=== PATIENT | male | born 1975 | race Caucasian/White ===

== ENCOUNTER 2022-09-28 15:09 | Outpatient (CLI) | payer OTHER, SELFPAY ==
--- NOTE | ~2022-09-28 | XR_ITS ---
EXAMINATION: XR chest 2V 09/28/2022 15:34 INDICATION: Chest pain and shortness of breath PROCEDURE: 2 view chest COMPARISON: No prior studies for comparison. FINDINGS: The lungs are clear. The cardiomediastinal silhouette is within normal limits. There are no pleural effusions. There is no pneumothorax suspected. There are a few scattered calcified granu akhil. IMPRESSION: 1: NO ACUTE CARDIOPULMONARY DISEASE. Reviewed, dictated and finalized at location B. ACCOUNTS REPRESENTATIVE
== END 2022-09-28 15:10 | disposition home or self-care (01) ==
PROVIDERS: PCP Family Medicine; Visit Provider Family Medicine
DX: R03.0 Elevated blood-pressure reading, without diagnosis of hypertension (principal); R00.2 Palpitations; E03.9 Hypothyroidism, unspecified
CPT/HCPCS: 71046

== ENCOUNTER 2022-09-29 12:15 | Outpatient (CLI) | payer OTHER, SELFPAY | END 2022-09-29 12:16 | disposition home or self-care (01) | LOC: CHSCARD 12:16 | PROVIDERS: PCP Family Medicine; Visit Provider Family Medicine | DX: R06.00 Dyspnea, unspecified (principal); R07.9 Chest pain, unspecified | CPT/HCPCS: 94060; 94726; 94729 ==

== ENCOUNTER 2022-10-02 09:59 | Outpatient (CLI) | payer OTHER, SELFPAY ==
[2022-10-02 10:30] LABS: Basophils Percent Auto 1.3 % (0.0-1.0); Eosinophils Absolute Auto 0.44 K/mm3 (0.02-0.50); Eosinophils Percent Auto 5.7 % (1.0-6.0); Hematocrit 40.8 % (40.0-54.0); Hemoglobin 13.9 g/dL (14.0-18.0); Immature Granulocyte Absolute 0.02 K/mm3 (0.00-0.00); Immature Granulocyte Percent A 0.3 % (0.0-0.0); Lymphocytes Absolute Auto 2.86 K/mm3 (1.10-4.50); Mean Corpuscular HGB Conc 34.1 g/dL (32.0-36.0); Mean Platelet Volume 9.7 fl (8.7-11.0); Monocytes Absolute Auto 0.74 K/mm3 (0.10-0.90); Monocytes Percent Auto 9.6 % (2.0-11.0); Neutrophils Absolute Auto 3.6 K/mm3 (1.7-7.2); Neutrophils Percent Auto 46.1 % (50.0-70.0); Platelet Count Result 290 K/mm3 (150-420); Red Cell Distribution Width 12.7 % (11.6-14.4); White Blood Count 7.7 K/mm3 (4.8-10.8)
[2022-10-02 11:21] LABS: Alanine Aminotransferase 27 U/L (16-63); Albumin Level 3.7 g/dL (3.4-5.0); Alkaline Phosphatase 107 U/L (46-116); Anion Gap 7 mmol/L (8-16); Aspartate Amino Transferase 29 U/L (15-37); Blood Urea Nitrogen 11 mg/dL (7-18); Calcium 9.2 mg/dL (8.5-10.1); Carbon Dioxide 29 mmol/L (21-32); Chloride 102 mmol/L (98-108); Cholesterol 139 mg/dL (0-200); Estimated Glomerular Filt Rate > 60; Free T4 Free Thyroxine 0.74 ng/dL (0.76-1.46); Glucose 92 mg/dL (70-99); HDL Direct 33 mg/dL (40-60); LDL Cholesterol Calculated 83 mg/dL (<130); Osmolality Calculated 285 mOsm/kg (285-295); Potassium 4.2 mmol/L (3.5-5.1); Sodium 138 mmol/L (136-145); Thyroid Stimulating Hormone 25.02 uIU/mL (0.36-3.74); Total Protein 7.3 g/dL (6.4-8.2); Triglycerides 117 mg/dL (0-150)
== END 2022-10-02 10:00 | disposition home or self-care (01) ==
LOC: CHSLAB 10:02
PROVIDERS: PCP Family Medicine; Visit Provider Family Medicine
DX: R03.0 Elevated blood-pressure reading, without diagnosis of hypertension (principal); R00.2 Palpitations; E03.9 Hypothyroidism, unspecified; Z13.220 Encounter for screening for lipoid disorders
CPT/HCPCS: 36415; 80053; 80061; 84439; 84443; 85025

== ENCOUNTER 2023-12-29 15:41 | Emergency (ER) | payer OTHER, SELFPAY ==
--- NOTE | ~2023-12-29 | XR_ITS ---
EXAM: XR ankle LT min 3V, XR foot LT min 3V DATE: 12/29/2023 16:01 HISTORY: dropped a heavy object on the left ankle/MEDIAL PAIN . COMPARISON: None available. FINDINGS: Uncomplicated fixation screws in the navicular. Normal mineralization. No fracture or disl ocation. Bone island in the distal tibia. Joint spaces are maintained. No erosion or periosteal pisano e. Soft tissues within normal limits. IMPRESSION: No acute osseous finding in the left ankle or foot. Reviewed, dictated and finalized at location K. IMPRESSION: No acute osseous finding in the left ankle or foot.
[2023-12-29 15:41] VITALS: BP 176/90; PULSE 92; RESP 20; TEMP 36.1; O2SAT 100
--- NOTE | 2023-12-29 15:44 | ED.LOWEXIN ---
HPI - Extremity Injury (Lower) General Chief Complaint: Extremity Injury, Lower Stated Complaint: L foot/ankle injury Time Seen by Provider: 12/29/23 15:44 Source: patient Mode of arrival: ambulatory Limitations: no limitations History of Present Illness HPI Narrative: 48-year-old male dropped a heavy object on his left lower leg, ankle/foot yesterday. presents with abrasions or / bruising of his left lower leg foot and ankle. Unable to bear weight. No other injuries noted. up-to-date on tetanus MD complaint: ankle injury and foot injury Onset (ago): day(s) ( One day ago) Injury: Left: ankle and foot Type of Injury: blunt Place: work Severity: severe Relieving factors: immobilization Exacerbating factors: movement Context: direct blow Other symptoms: none Related Data Allergies Allergy/AdvReac Type Severity Reaction Status Date / Time topiramate [From Topamax] Allergy Unknown Verified 12/29/23 15:59 Review of Systems Review of Systems: All systems reviewed & are unremarkable except as noted in HPI and below Constitutional: Constitutional: Reports as per HPI and Reports no additional constitutional complaints Eyes: Eyes: Reports as per HPI and Reports no additional eye complaints ENT: Reports system reviewed and no additional complaints, except as documented and Reports as per HPI Cardiovascular: Cardiovascular: Reports as per HPI and Reports no additional cardiovascular complaints Respiratory: Respiratory: Reports as per HPI and Reports no additional respiratory complaints Gastrointestinal: Gastrointestinal: Reports as per HPI and Reports no additional gastrointestinal complaints Genitourinary: Genitourinary: Reports no additional male genitourinary complaints and Reports as per HPI Musculoskeletal: Musculoskeletal: Reports no additional musculoskeletal complaints and Reports as per HPI Integumentary/Breasts: Skin/Breast: Reports system reviewed and no additional complaints, except as docu Comments: left leg/ foot / ankle bruising/abrasion Neurologic: Reports system reviewed and no additional complaints, except as documented and Reports as per HPI Psychiatric: Psychiatric: Reports no additional psychiatric complaints and Reports as per HPI Endocrine: Endocrine: Reports no additional endocrine complaints and Reports as per HPI Hematologic/Lymphatic: Hematologic/Lymphatic: Reports no additional hematologic/lymphatic complaints and Reports as per HPI Allergic/Immunologic: Allergic/Immunologic: Reports no additional allergic/immunologic complaints and Reports as per HPI Exam Narrative: blood pressure 176/90. Const: General: ill appearing Orientation/consciousness: patient oriented x3 Limitations: no limitations HENMT: Head: normal to inspection Ears: external ears normal Face/Nose/Sinus: Normal external nose present Face and sinus: normal facial exam Mouth: Yes Normal oral and palatal mucosa present Throat: posterior oropharynx normal Eyes: Conjunctivae: conjunctivae normal Pupils: Equal, round and reactive pupils present EOM: EOMs intact bilaterally Direct Ophthalmoscopy: no photophobia Neck: Neck: normal visual inspection, no lymphadenopathy and no meningeal signs Chest: Chest palpation & inspection: normal inspection of the chest Resp: Effort & Inspection: normal respiratory effort Auscultation: rhonchi Cardio: Rate: regular rate Rhythm: regular rhythm GI: GI Palp: Yes Soft to palpation Auscultation: normal bowel sounds : General: Yes no CVA tenderness Back/Spine/Pelvis: Back: no CVA tenderness Skin: Other: Left lower leg, foot and ankle abrasion/bruising Neuro: General: patient oriented x3, moves all extremities, no meningeal signs, no focal motor deficits and CN's II-XI intact bilaterally Cranial nerves: Yes Nystagmus not present Speech: normal speech Extrem: Other: left ankle-- tender. Decreased range of motion left foot-- scar on the top of
[2023-12-29] MEDS: Please add drug allergy info to patient profile. 1 EACH XX (15:58)
[2023-12-29] MEDS: HYDROmorphone HCL INJ (*CRX) 2 MG/ML VIAL 0.5 MG IM (16:03)
[2023-12-29] MEDS: ONDANSETRON HCL ODT 4 MG TABLET PO (16:03)
== END 2023-12-29 16:26 | disposition home or self-care (01) ==
PROVIDERS: Emergency Provider Internal Medicine Critical Care Medicine; PCP Family Medicine
DX: S93.602A Unspecified sprain of left foot, initial encounter (principal); S93.402A Sprain of unspecified ligament of left ankle, initial encounter; W20.8XXA Other cause of strike by thrown, projected or falling object, initial encounter
CPT/HCPCS: 73610; 73630; 96372; 99283; A9270; J1170; L4350

== ENCOUNTER 2024-03-07 09:23 | Outpatient (CLI) | payer OTHER, SELFPAY ==
--- NOTE | ~2024-03-07 | XR_ITS ---
XR abdomen obstructive series Ordering provider: Nathan Hernandez MD History: . rlq pain,CONSTIPATION . Comparison: None. FINDINGS: BOWEL: Nonobstructive bowel gas pattern. ORGANOMEGALY: None. SIGNIFICANT PATHOLOGIC CALCIFICATIONS: Calcification in the right upper quadrant which may be a galls tone. Granuloma of the liver is also possible. Splenic calcifications are also noted. OTHER: No free air is seen under the diaphragm. Narrowing of the disc L4-L5. IMPRESSION: NO ACUTE ABDOMINAL FINDINGS. Calcification in the right upper quadrant may be a gallstone or granuloma in the liver.. Reviewed, dictated and finalized at location A. IMPRESSION: NO ACUTE ABDOMINAL FINDINGS. Calcification in the right upper quadrant may be a gallstone or granuloma in th e liver..
[2024-03-07 09:52] LABS: Basophils Percent Auto 1.6 % (0.0-1.0); Eosinophils Absolute Auto 0.32 K/mm3 (0.02-0.50); Eosinophils Percent Auto 5.1 % (1.0-6.0); Hematocrit 44.4 % (40.0-54.0); Hemoglobin 15.5 g/dL (14.0-18.0); Immature Granulocyte Absolute 0.01 K/mm3 (0.00-0.00); Immature Granulocyte Percent A 0.2 % (0.0-0.0); Lymphocytes Absolute Auto 2.32 K/mm3 (1.10-4.50); Lymphocytes Percent Auto 36.7 % (18.0-42.0); Mean Corpuscular HGB Conc 34.9 g/dL (32-36); Mean Corpuscular Hemoglobin 29.9 pg (27.0-31.0); Mean Corpuscular Volume 85.7 fL (78.0-102.0); Monocytes Absolute Auto 0.59 K/mm3 (0.10-0.90); Monocytes Percent Auto 9.3 % (2.0-11.0); Neutrophils Absolute Auto 2.99 K/mm3 (1.70-7.20); Neutrophils Percent Auto 47.1 % (50.0-70.0); Platelet Count Result 296 K/mm3 (150-420); Red Blood Count 5.18 M/mm3 (4.70-6.10); Red Cell Distribution Width 12.6 % (11.6-14.4); White Blood Count 6.3 K/mm3 (4.8-10.8)
[2024-03-07 09:54] LABS: Add Urine Microscopic? YES; Appearance Urine Clear (Clear); Bilirubin Urine Negative (Negative); Blood Urine 2+ (Negative); Color Urine Yellow (Yellow); Glucose Urine UA Negative (Negative); Ketones Urine Negative (Negative); Leukocyte Esterase Ur Negative (Negative); Nitrate Urine Negative (Negative); Protein Urine 2+ (Negative); Specific Grav Ur >= 1.030 (1.010-1.020)
[2024-03-07 10:01] LABS: Bacteria Urine Rare /hpf; Other Sediment Urine Spermatazoa /hpf; WBC Urine None seen /hpf (0-3)
[2024-03-07 18:59] LABS: Creatinine Urine 291.69 mg/dL (40-278); Microalbumin Urine Random 49.8 mg/L
[2024-03-07 19:20] LABS: Alanine Aminotransferase 22 U/L (16-63); Albumin Level 4.3 g/dL (3.4-5.0); Alkaline Phosphatase 129 U/L (46-116); Aspartate Amino Transferase 46 U/L (15-37); Bilirubin,Total 1.1 mg/dL (0.00-1.00); Blood Urea Nitrogen 11 mg/dL (7-18); Calcium 9.4 mg/dL (8.5-10.1); Chloride 99 mmol/L (98-108); Estimated Glomerular Filt Rate > 60; Free T4 Free Thyroxine 0.54 ng/dL (0.76-1.46); Glucose 74 mg/dL (70-99); Osmolality Calculated 286 mOsm/kg (285-295); Potassium 3.7 mmol/L (3.5-5.1); Sodium 139 mmol/L (136-145); Total Protein 8.7 g/dL (6.4-8.2)
[2024-03-07 20:16] LABS: Anion Gap 20 mmol/L (4-12); Carbon Dioxide 20 mmol/L (21-32)
[2024-03-07 20:47] LABS: Thyroid Stimulating Hormone 86.46 uIU/mL (0.36-3.74)
== END 2024-03-07 09:24 | disposition home or self-care (01) ==
LOC: CHSLAB 09:25
PROVIDERS: PCP Family Medicine; Visit Provider Family Medicine
DX: D64.9 Anemia, unspecified (principal); R10.31 Right lower quadrant pain; R30.0 Dysuria; E03.9 Hypothyroidism, unspecified
CPT/HCPCS: 36415; 74019; 80053; 81001; 82043; 84439; 84443; 85025; 87086

== ENCOUNTER 2024-03-13 08:19 | Outpatient (CLI) | payer OTHER, SELFPAY ==
--- NOTE | ~2024-03-13 | US_ITS ---
EXAMINATION: US right upper quadrant DATE: 03/13/2024 08:56 INDICATION: Abnormal liver function tests. TECHNIQUE: Multiple grayscale and Doppler ultrasound images of the abdomen were obtained. COMPARISON: None FINDINGS: The visualized portion of the tail of the pancreas is normal. The liver is normal without f ocal lesion. No liver surface nodularity. There is normal flow in main portal vein. The gallbladder i s normal in size. No gallstones or gallbladder wall thickening. There is no sonographic Ceron's sign . The common duct is normal and measures 3 mm. IMPRESSION: 1. Normal right upper quadrant ultrasound. Reviewed, dictated and finalized at location A.
[2024-03-13 08:50] LABS: Add Urine Microscopic? YES; Appearance Urine Clear (Clear); Bilirubin Urine Negative (Negative); Blood Urine Negative (Negative); Color Urine Yellow (Yellow); Glucose Urine UA Negative (Negative); Ketones Urine Negative (Negative); Leukocyte Esterase Ur Negative (Negative); Nitrate Urine Negative (Negative); Protein Urine Trace (Negative); Specific Grav Ur 1.025 (1.010-1.020)
[2024-03-13 08:55] LABS: Bacteria Urine Trace /hpf; Other Sediment Urine Spermatazoa /hpf; RBC Urine None seen /hpf (0-2); WBC Urine None seen /hpf (0-3)
[2024-03-13 08:56] LABS: Mucus Urine Moderate /lpf
== END 2024-03-13 08:20 | disposition home or self-care (01) ==
LOC: CHSIMG 08:21
PROVIDERS: PCP Family Medicine; Visit Provider Family Medicine
DX: R74.01 Elevation of levels of liver transaminase levels (principal); R31.9 Hematuria, unspecified
CPT/HCPCS: 76705; 81001

== ENCOUNTER 2024-05-10 15:44 | Outpatient (CLI) | payer OTHER, SELFPAY ==
--- NOTE | ~2024-05-10 | XR_ITS ---
Left Hand Technique: PA, oblique, and lateral views were obtained. Clinical History: Pain Findings: No acute fracture or dislocation is seen. There is a 14 mm lytic lesion at the distal ulna, with narrow zone of transition. No periosteal reaction. Joint spaces are preserved. Soft tissues are unremarkable. Impression: 14 mm ovoid lytic lesion of the distal ulna. Diagnostic considerations could include focal fibrous dy splasia, giant cell tumor, however lytic bone lesions. Pre and postcontrast MR recommended to further assess. Reviewed, dictated and finalized at location M. Impression: 14 mm ovoid lytic lesion of the distal ulna. Diagnostic considerations could in clude focal fibrous dysplasia, giant cell tumor, however lytic bone lesions. Pr e and postcontrast MR recommended to further assess.
--- NOTE | ~2024-05-10 | XR_ITS ---
Left wrist Technique: PA, oblique, lateral, and ulnar deviation views were obtained. Clinical History: Ulnar-sided pain Findings: No acute fracture or dislocation is seen. There is a 16 mm lytic lesion at the distal ulna, extending to the articular surface. There is a transition. No periosteal reaction. Joint spaces are preserved. Soft tissues are unremarkable. Impression: 16 mm ovoid lytic lesion of the distal ulna, as detailed above. Giant cell tumor is a consideration. Pre and postcontrast MR recommended to further assess. Reviewed, dictated and finalized at location M. Impression: 16 mm ovoid lytic lesion of the distal ulna, as detailed above. Giant cell tumo r is a consideration. Pre and postcontrast MR recommended to further assess.
[2024-05-10 16:03] LABS: Basophils Absolute Auto 0.07 K/mm3 (0.00-0.10); Basophils Percent Auto 1.1 % (0.0-1.0); Eosinophils Absolute Auto 0.42 K/mm3 (0.02-0.50); Eosinophils Percent Auto 6.6 % (1.0-6.0); Hematocrit 40.2 % (40.0-54.0); Lymphocytes Absolute Auto 2.15 K/mm3 (1.10-4.50); Mean Corpuscular HGB Conc 34.8 g/dL (32-36); Mean Corpuscular Hemoglobin 29.1 pg (27.0-31.0); Mean Corpuscular Volume 83.6 fL (78.0-102.0); Mean Platelet Volume 9.7 fl (8.7-11.0); Monocytes Absolute Auto 0.41 K/mm3 (0.10-0.90); Monocytes Percent Auto 6.5 % (2.0-11.0); Neutrophils Absolute Auto 3.28 K/mm3 (1.70-7.20); Neutrophils Percent Auto 51.8 % (50.0-70.0); Platelet Count Result 293 K/mm3 (150-420); Red Blood Count 4.81 M/mm3 (4.70-6.10); Red Cell Distribution Width 12.5 % (11.6-14.4); White Blood Count 6.3 K/mm3 (4.8-10.8)
[2024-05-10 16:46] LABS: Anion Gap 8 mmol/L (4-12); Blood Urea Nitrogen 8 mg/dL (7-18); Calcium 8.9 mg/dL (8.5-10.1); Carbon Dioxide 29 mmol/L (21-32); Chloride 101 mmol/L (98-108); Estimated Glomerular Filt Rate > 60; Glucose 114 mg/dL (70-99); Osmolality Calculated 285 mOsm/kg (285-295); Potassium 3.6 mmol/L (3.5-5.1); Sodium 138 mmol/L (136-145); Thyroid Stimulating Hormone 47.23 uIU/mL (0.36-3.74)
== END 2024-05-10 15:45 | disposition home or self-care (01) ==
LOC: CHSLAB 15:46
PROVIDERS: PCP Family Medicine; Visit Provider Family Medicine
DX: M25.532 Pain in left wrist (principal); E03.9 Hypothyroidism, unspecified; M89.9 Disorder of bone, unspecified
CPT/HCPCS: 36415; 73110; 73130; 80048; 84443; 85025

== ENCOUNTER 2024-05-27 09:01 | Outpatient (CLI) | payer OTHER, SELFPAY ==
--- NOTE | ~2024-05-27 | MR_ITS ---
EXAMINATION: MR wrist LT wo/w con DATE: 05/27/2024 10:17 INDICATION: Lytic lesion of distal ulna. Left wrist pain. TECHNIQUE: Magnetic resonance imaging (MRI) of the wrist was performed without and with 17 mL MultiHa nce intravenous contrast. COMPARISON: Left wrist radiographs 05/10/2024 FINDINGS: Intrinsic ligaments: Scapholunate ligament and lunotriquetral ligament are intact. Triangular fibrocartilage complex (TFCC): There is a large full-thickness tear of the triangular fibrocartilage. Extensor wrist: The extensor tendons are normal. Flexor wrist: The flexor tendons are normal. Median nerve is normal. Guyon's canal: Ulnar nerve is normal. Bones/other: Distal ulna abuts proximal lunate with edema-like marrow signal intensity and subchondral cysts in amairani th bones including a 16 mm subchondral cyst in distal ulna. Bone marrow edema involves the distal 4.4 cm of ulna. There is breach of the dorsal cortex of distal ulna at the junction of the head and neck with a 14 mm ganglion cyst in the soft tissues that is contiguous with the subchondral cyst. There is mild edema-like signal intensity in proximal triquetrum. 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 There is synovitis of distal radioulnar joint. IMPRESSION: 1. 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 Reviewed, dictated and finalized at location A. IMPRESSION: 1. 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
== END 2024-05-27 09:02 | disposition home or self-care (01) ==
LOC: CHSIMG 09:02
PROVIDERS: PCP Family Medicine; Visit Provider Family Medicine
DX: D16.9 Benign neoplasm of bone and articular cartilage, unspecified (principal)
CPT/HCPCS: 73223; A9577

== ENCOUNTER 2024-06-19 10:15 | Outpatient (CLI) | payer OTHER, SELFPAY ==
[2024-06-19 12:25] LABS: Thyroid Stimulating Hormone 24.69 uIU/mL (0.36-3.74)
== END 2024-06-19 10:16 | disposition home or self-care (01) ==
PROVIDERS: PCP Family Medicine; Visit Provider Family Medicine
DX: E03.9 Hypothyroidism, unspecified (principal)
CPT/HCPCS: 36415; 84443

== ENCOUNTER 2024-08-17 13:21 | Outpatient (CLI) | payer OTHER, SELFPAY ==
[2024-08-17 14:35] LABS: Thyroid Stimulating Hormone 6.35 uIU/mL (0.36-3.74)
== END 2024-08-17 13:22 | disposition home or self-care (01) ==
LOC: CHSLAB 13:23
PROVIDERS: PCP Family Medicine; Visit Provider Family Medicine
DX: E03.9 Hypothyroidism, unspecified (principal)
CPT/HCPCS: 36415; 84443

== ENCOUNTER 2024-11-14 09:46 | Outpatient (CLI) | payer OTHER, SELFPAY ==
--- OUTSIDE RECORDS SUMMARY | 2024-11-14 10:33 | XMS_ITS | Referral Summary ---
Author Organization [facility] Address [address] [place] [id number] Care Team Providers Care General Technician Name Role Phone Unknown, Notinfile Primary Care Provider Unavail able Encounters Date Type Department Care Team Description 10/10/2024 5:46 PM CDT - 10/10/2024 11:59 PM CDT Hospital Encounter [facility] ([facility]) [address] [place] [id number] Discharge Disposition: Discharge to home or self care 10/10/2024 5:39 PM CDT - 10/10/2024 11:59 PM CDT Hospital Encounter [facility] ([facility]) [address] [place] [id number] Discharge Disposition: Discharge to home or self care 10/10/2024 2:21 PM CDT - 10/10/2024 11:59 PM CDT Hospital Encounter [facility] ([facility]) [address] [place] [id number] Avery Aviles MD Left elbow pain Discharge Disposition: Discharge to home or self care 10/10/2024 1:40 PM CDT Office Visit [facility] [address] [place] [address] 6[address] [place] [address] [place] [address] Avery Aviles MD Left elbow pain (Primary Dx) from Last 3 Months Allergies No known active allergies Medications levothyroxine (SYNTHROID) 175 mcg tablet 09/21/2024 Active Active Problems No known active problems Social History Tobacco Use Types Packs/Day Years Used Date Smoking Tobacco: Every Day Cigarettes Smokeless Tobacco: Never Tobacco Cessation:Ready to Q uit: Not Asked; Counseling Given: Not Answered Sex and Gender Information Value Date Recorded Sex Assigned at Not on file 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 Gender Identity Not on file Sexual Orientation Not on file Last Filed Vital Signs Vital Sign Reading Time Taken Comments Blood Pressure - - Pulse - - Temperature - - Respiratory Rate - - Oxygen Saturation - - Inhaled Oxygen Concentration - - Weight 81.6 kg (180 lb) 10/10/2024 1:48 PM CDT Height 175.3 cm (5' 9 ) 10/10/2024 1:48 PM CDT Body Mass Index 26.58 10/10/2024 1:48 PM CDT Plan of Treatment Not on file Procedures Procedure Name Priority Date/Time Associated Diagnosis Comments XR TRANSFER OF OUTSIDE FILMS Routine 10/10/2024 5:46 PM CDT MSK MR OUTSIDE REFERENCE Routine 10/10/2024 5:39 PM CDT XR ELBOW LEFT 2 OR MORE VIEWS Schedule Routine, Read Routine (OP Routine) 10/10/2024 2:34 PM CDT Left elbow pain HI ARTHROCENTESIS ASPIR&/INJ INTERM JT/BURS W/O US Routine 10/10/2024 1:40 PM CDT Left elbow pain from Last 3 Months Results * XR Outside Reference (10/10/2024 5:46 PM CDT) Impressions [facility] - 10/10/2024 5:46 PM CDT These images are for Reference purposes only and have not been reviewed by [facility]. There will be no report generated by a [facility] Radiologist. Narrative [facility] - 10/10/2024 5:46 PM CDT EXAMINATION: Images For Reference Purposes Only us Avery Aviles MD IMG XR PROCEDURES Final Resul t [facility] * MSK MR Outside Reference (10/10/2024 5:39 PM CDT) Impressions [facility] - 10/10/2024 5:39 PM CDT These images are for Reference purposes only and have not been reviewed by [facility]. There will be no report generated by a [facility] Radiologist. Narrative [facility] - 10/10/2024 5:39 PM CDT EXAMINATION: Images For Reference Purposes Only us Avery Aviles MD IMG MRI PROCEDURES Final Resu lt [facility] * X-ray elbow left 2 views (10/10/2024 2:34 PM CDT) Anatomical Region Laterality Modality Upper Extremities, Elbow Left Compute d Radiography 10/10/2024 2:55 PM CDT Impressions 10/10/2024 2:55 PM CDT 1. Normal radiographic appearance of the left elbow. Electronically signed by: Jayesh Hoover D.O. Narrative 10/10/2024 2:55 PM CDT EXAMINATION: XR ELBOW LEFT 2 VIEWS HISTORY: JOINT PAIN, ELBOW FINDINGS: No comparison prior imaging is available. No acute fracture. No dislocation. Joint spaces are maintained. No significant elbow joint effusion. Procedure Note Jayseh Hoover DO - 10/10/2024 EXAMINATION: XR ELBOW LEFT 2 VIEWS HISTORY: JOINT PAIN, ELBOW FINDINGS: No comparison prior imaging is available. No acute fracture. No dislocation. Joint spaces are maintained. No significant elbow joint effusion. IMPRESSION: 1. Normal radiographic appearance of the left elbow. Electronically signed by: Jayesh Hoover D.O. us Avery Aviles MD IMG XR PROCEDURES Final Resul t * HI ARTHROCENTESIS ASPIR&/INJ INTERM JT/BURS W/O US (10/10/2024 1:40 PM CDT) Narrative Avery Aviles MD - 10/10/2024 1:40 PM CDT Avery Aviles MD 10/10/2024 2:44 PM Medium Joint Injection: L radiocarpal Performed by: Avery Aviles MD Authorized by: Avery Aviles MD Medium Joint Injection/Aspiration: Consent Given by: Patient Timeout: prior to procedure the correct patient, procedure, and site was verified Verbal consent obtained?: Yes Supporting Documentation: Indications: Pain Procedure Details: Location: Wrist Site: L radiocarpal Approach: Dorsal Medications: 1 mL lidocaine 10 mg/mL (1 %); 40 mg methylPREDNISolone acetate 40 mg/mL Patient tolerance: Patient tolerated the procedure well with no immediate complications Avery Aviles MD IN CLINIC/BEDSIDE ORDERABLES Final Result from Last 3 Months Insurance [facility] Care Teams General Technician Relationship Specialty Start Date End Date Unknown, Notinfile PCP - General 07/18/24
--- OUTSIDE RECORDS SUMMARY | 2024-11-14 10:33 | XMS_ITS | Clinical Summary ---
Author Organization [facility] Address [facility] [place] [address] Care Team Providers Care Education Sales Consultant Name Role Phone Tres Abdi MD Primary Care Provider [phone] Allergies No known active allergies Medications azithromycin (ZITHROMAX) 500 MG tablet Take 1 tablet (500 mg total) by mouth daily. 3 tablet 07/02/2019 Active cloNIDine 0.2 MG tablet Take 0.2 mg by mouth 2 (two) times daily. Active gabapentin 100 MG capsule Take 100 mg by mouth 3 (three) times daily. Active meloxicam 15 MG tablet Take 7.5 mg by mouth daily. Active risperiDONE (RISPERDAL) 1 MG tablet Take 1 mg by mouth 2 (two) times daily. Active levothyroxine 75 MCG tablet Take 75 mcg by mouth every morning. Active OXcarbazepine (TRILEPTAL) 150 MG tablet Take 150 mg by mouth 2 (two) times daily. 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 Gender Identity Not on file Sexual Orientation Not on file Last Filed Vital Signs Vital Sign Reading Time Taken Comments Blood Pressure 108/62 09/22/2019 2:47 PM CATHEAD WORKER Pulse 93 09/22/2019 2:47 PM CATHEAD WORKER Temperature 36.7 C (98 F) 07/02/2019 9:02 AM CATHEAD WORKER Respiratory Rate 20 07/02/2019 9:02 AM CATHEAD WORKER Oxygen Saturation 98% 09/22/2019 2:47 PM CATHEAD WORKER Inhaled Oxygen Concentration - - Weight 74.3 kg (163 lb 12.8 oz) 09/22/2019 2:47 PM CATHEAD WORKER Height 172.7 cm (5' 8 ) 09/22/2019 2:47 PM CATHEAD WORKER Body Mass Index 24.91 09/22/2019 2:47 PM CATHEAD WORKER Plan of Treatment Health Maintenance Due Date Last Done Comments Colorectal Cancer Screening Colonoscopy (10 Years) 1977 Annual Physical 1980 Pneumococcal Vaccine: Pediatrics (0 to 5 Years) and At-Risk Patients (6 to 49 Years) (1 of 2 - PCV) 1983 Hepatitis C 1995 DTaP, Tdap and Td Vaccines (1 - Tdap) 1996 12/16/1981, 05/02/1981, 09/06/1980, Additional history exists Hepatitis B Vaccines (1 of 3 - 19+ 3-dose series) 1996 COVID-19 Vaccine ( - 2023- season) 2024 Meningococcal B Vaccine Aged Out No l onger eligible based on patient's age to complete this topic Meningococcal Vaccine Aged Out No spring jude eligible based on patient's age to complete this topic RSV Immunizations Under 20 Months Aged Out No longer eligible based on patient's age to complete this topic Additional Health Concerns Infection Onset Date Last Indicated MRSA 08/17/2018 08/17/[address] [place] [address] [place] [address] Advance Directives Documents on File Type Date Recorded 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
--- OUTSIDE RECORDS SUMMARY | 2024-11-14 10:33 | XMS_ITS | Encounter Summary ---
Author Organization [facility] Address [facility] [place] [address] Care Team Providers Care [employer] [address] [address] [employer] Name Role Phone Jose Carlos Mcdonough MD Primary Care Provider [phone] Marissa Jung Primary Care Provider [phone] Tres Abdi MD Primary Care Provider [phone] Encounter Details Date Type Department Care Team (Late st Contact Info) Description 01/07/2019 Abstract [facility] CONVERSION [address] [place] [address] , Generic Conversion, Social History Tobacco Use Types Packs/Day Years Used Date Smoking Tobacco: Never Assessed Sex and Gender Information Value Date Recorded Sex Assigned at Not on file 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 Gender Identity Not on file Sexual Orientation Not on file documented as of this encounter Plan of Treatment Not on file documented as of this encounter Visit Diagnoses Not on filedocumented in this encounter Additional Health Concerns Infection Onset Date Last Indicated Resolved Time MRSA 08/17/2018 08/17/2018 documented as of this encounter Care Teams [employer] [address] [employer] Relationship Specialty Start Date End Date Jose Carlos Mcdonough MD PCP - General FAMILY PRACTICE 06/26/19 07/19/19 Marissa Jung FNP-BC [address] [place] [address] PCP - General NURSE PRACTITIONER 07/20/19 03/12/20 Tres Abdi MD [address] [place] [phone] PCP - General FAMILY PRACTICE 03/13/20 documented as of this encounter
--- OUTSIDE RECORDS SUMMARY | 2024-11-14 10:33 | XMS_ITS | Clinical Summary ---
Author Organization [facility] Address [address] [place] [phone] Care Team Providers Care Industrial Real Estate Agent Name Role Phone Unknown, Notinfile Primary Care Provider Unavail able Allergies No known active allergies Medications levothyroxine (SYNTHROID) 175 mcg tablet 09/21/2024 Active Active Problems No known active problems Encounters Date Type Department Care Team Description 10/10/2024 5:46 PM CDT - 10/10/2024 11:59 PM CDT Hospital Encounter [facility] ([facility]) [address] [place] [id number] Discharge Disposition: Discharge to home or self care 10/10/2024 5:39 PM CDT - 10/10/2024 11:59 PM CDT Hospital Encounter [facility] ([facility]) [address] [place] [phone] Discharge Disposition: Discharge to home or self care 10/10/2024 2:21 PM CDT - 10/10/2024 11:59 PM CDT Hospital Encounter [facility] ([facility]) [address] [place] [phone] Avery Aviles MD Left elbow pain Discharge Disposition: Discharge to home or self care 10/10/2024 1:40 PM CDT Office Visit [facility] Orthopaedic Surgery [address] [place] [address] Advanced Medicine 6th [place] [address] [place] [address] Avery Aviles MD Left elbow pain (Primary Dx) from Last 3 Months Surgical History Surgery Date Site/Laterality Comments FOOT SURGERY Left Fracture fixation HAND SURGERY Right Closed Reduction and pinning [facility] History Medical History Date Comments Thyroid disease Family History Medical History Relation Name Comments Agent orange Father Epilepsy Mother Heart disease Mother Relation Name Status Comments Father Mother Social History Tobacco Use Types Packs/Day Years Used Date Smoking Tobacco: Every Day Cigarettes Smokeless Tobacco: Never Tobacco Cessation:Ready to Q uit: Not Asked; Counseling Given: Not Answered Sex and Gender Information Value Date Recorded Sex Assigned at Not on file 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 Gender Identity Not on file Sexual Orientation Not on file Obstetrics History Last Filed Vital Signs Vital Sign Reading Time Taken Comments Blood Pressure - - Pulse - - Temperature - - Respiratory Rate - - Oxygen Saturation - - Inhaled Oxygen Concentration - - Weight 81.6 kg (180 lb) 10/10/2024 1:48 PM CDT Height 175.3 cm (5' 9 ) 10/10/2024 1:48 PM CDT Body Mass Index 26.58 10/10/2024 1:48 PM CDT Plan of Treatment Health Maintenance Due Date Last Done Comments Colon Cancer Screening-Colonoscopy 1977 Depression Screening 1977 Hepatitis C Screening 1977 Hepatitis B Screening 1995 Regular Well Visit/Exam 18-64 1995 Pneumococcal vaccine <65 (1 of 2 - PCV) 1996 Covid-19 Vaccine (3 - 2023-2 5 season) 2024 04/10/2021, 02/26/2021 Influenza Vaccine (#1) 2024 DTaP/Tdap/Td Vaccine (6 - Td or Tdap) 08/25/2025 08/25/2015, 06/22/1991, 12/16/1981, Additional history exists Procedures Procedure Name Priority Date/Time Associated Diagnosis Comments XR TRANSFER OF OUTSIDE FILMS Routine 10/10/2024 5:46 PM CDT MSK MR OUTSIDE REFERENCE Routine 10/10/2024 5:39 PM CDT XR ELBOW LEFT 2 OR MORE VIEWS Schedule Routine, Read Routine (OP Routine) 10/10/2024 2:34 PM CDT Left elbow pain [place] ARTHROCENTESIS ASPIR&/INJ INTERM JT/BURS W/O US Routine 10/10/2024 1:40 PM CDT Left elbow pain from Last 3 Months Results * XR Outside Reference (10/10/2024 5:46 PM CDT) [facility] - 10/10/2024 5:46 PM CDT These images are for Reference purposes only and have not been reviewed by [facility] Radiology. There will be no report generated by a [facility] Radiologist. Narrative [facility] - 10/10/2024 5:46 PM CDT EXAMINATION: Images For Reference Purposes Only Avery Aviles MD IMG XR PROCEDURES Final Resul t Performing Organization Address [facility] de Phone Number [email or web address] * MSK MR Outside Reference (10/10/2024 5:39 PM CDT) Impressions [facility] - 10/10/2024 5:39 PM CDT These images are for Reference purposes only and have not been reviewed by [facility] Radiology. There will be no report generated by a [facility] Radiologist. Narrative [facility] - 10/10/2024 5:39 PM CDT EXAMINATION: Images For Reference Purposes Only Avery Aviles MD IM MRI PROCEDURES Final Resu lt Performing Organization Address [facility] de Phone Number [email or web address] * X-ray elbow left 2 views [...] No significant elbow joint effusion. Procedure Note Jayesh Hoover DO - 10/10/2024 EXAMINATION: XR ELBOW LEFT 2 VIEWS HISTORY: JOINT PAIN, ELBOW FINDINGS: No comparison prior imaging is available. No acute fracture. No dislocation. Joint spaces are maintained. No significant elbow joint effusion. IMPRESSION: 1. Normal radiographic appearance of the left elbow. Electronically signed by: Jayesh Hoover D.O. us Avery Aviles MD IMG XR PROCEDURES Final Resul t * [place] ARTHROCENTESIS ASPIR&/INJ INTERM JT/BURS W/O US (10/10/2024 [...] the procedure well with no immediate complications us Avery Aviles MD IN CLINIC/BEDSIDE ORDERABLES Final Result from Last 3 Months Insurance [facility] Care Teams Industrial Real Estate Agent Relationship Specialty Start Date End Date Unknown, Notinfile PCP - General 07/18/24
[2024-11-14 10:54] LABS: Thyroid Stimulating Hormone 9.75 uIU/mL (0.36-3.74)
== END 2024-11-14 09:47 | disposition home or self-care (01) ==
PROVIDERS: PCP Family Medicine; Visit Provider Family Medicine
DX: E03.9 Hypothyroidism, unspecified (principal)
CPT/HCPCS: 36415; 84443

== ENCOUNTER 2025-01-29 13:36 | Outpatient (CLI) | payer OTHER, SELFPAY ==
--- OUTSIDE RECORDS SUMMARY | 2025-01-29 13:57 | XMS_ITS | Clinical Summary ---
Author Organization [facility] Address [address] [place] [phone] Care Team Providers Care Curam Developer Name Role Phone Unknown, Notinfile Primary Care Provider Unavail able Allergies No known active allergies Medications levothyroxine (SYNTHROID) 175 mcg tablet 09/21/2024 Active Active Problems No known active problems Encounters Date Type Department Care Team Description 01/29/2025 [facility] Initial Eligibility [facility] Warm Hand Off Program [address] [place], [place] [phone] Gisele Walton from Last 3 Months Surgical History Surgery Date Site/Laterality Comments FOOT SURGERY Left Fracture fixation HAND SURGERY Right Closed Reduction and pinning [facility] Medical History Medical History Date Comments Thyroid [...] on file 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 Gender Identity Not on file Sexual Orientation Not on file Obstetrics History Last Filed Vital Signs Vital Sign Reading Time Taken Comments Blood Pressure - - Pulse - - Temperature - - Respiratory Rate - - Oxygen Saturation - - Inhaled Oxygen Concentration - - Weight 81.6 kg (180 lb) 10/10/2024 1:48 PM CDT Height 175.3 cm (5' 9) 10/10/2024 1:48 PM CDT Body Mass Index 26.58 10/10/2024 1:48 PM CDT Plan of Treatment Health Maintenance Due Date Last Done Comments Colon Cancer Screening-Colonoscopy 1977 Depression Screening 1977 Hepatitis C Screening 1977 Hepatitis B Screening 1995 Regular Well Visit/Exam 18-64 1995 Pneumococcal vaccine <65 (1 of 2 - PCV) 1996 Covid-19 Vaccine (3 - 2023-2 5 season) 2024 04/10/2021, 02/26/2021 Influenza Vaccine (Season Ended) 2025 DTaP/Tdap/Td Vaccine (6 - Td or Tdap) 08/25/2025 08/25/2015, 06/22/1991, 12/16/1981, Additional history exists Insurance [facility] Care Teams Curam Developer Relationship Specialty Start Date End Date Unknown, Notinfile PCP - General 07/18/24
--- OUTSIDE RECORDS SUMMARY | 2025-01-29 13:57 | XMS_ITS | Clinical Summary ---
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 Gender Identity Not on file Sexual Orientation Not on file Last Filed Vital Signs Vital Sign Reading Time Taken Comments Blood Pressure 108/62 09/22/2019 2:47 PM GAMBRELER Pulse 93 09/22/2019 2:47 PM GAMBRELER Temperature 36.7 C (98 F) 07/02/2019 9:02 AM GAMBRELER Respiratory Rate 20 07/02/2019 9:02 AM GAMBRELER Oxygen Saturation 98% 09/22/2019 2:47 PM GAMBRELER Inhaled Oxygen Concentration - - Weight 74.3 kg (163 lb 12.8 oz) 09/22/2019 2:47 PM GAMBRELER Height 172.7 cm (5' 8) 09/22/2019 2:47 PM GAMBRELER Body Mass Index 24.91 09/22/2019 2:47 PM GAMBRELER Plan of Treatment Health Maintenance Due Date Last Done Comments Colorectal Cancer Screening Colonoscopy (10 Years) 1977 Annual Physical 1980 Hepatitis C 1995 DTaP, Tdap and Td Vaccines (1 - Tdap) 1996 12/16/1981, 05/02/1981, 09/06/1980, Additional history exists Hepatitis B Vaccines (1 of 3 - 19+ 3-dose series) 1996 Pneumococcal Vaccine: Pediatrics (0 to 5 Years) and At-Risk Patients (6 to 49 Years) (1 of 2 - PCV) 1996 COVID-19 Vaccine (1 - 2023- season) 2024 Meningococcal B Vaccine [...] Date Last Indicated MRSA 08/17/2018 08/17/[address] [place] [place] [address] Advance Directives Documents on File Type Date Recorded Patient Cutter Tender Expl anation Advance Directives and Living Will 04/19/2017 12:00 AM ADVANCED DIRECTIVES Care Teams Communication Skills Instructor Relationship Specialty Start Date End Date Tres Abdi MD [address] [place] [phone] PCP - General FAMILY PRACTICE 03/13/20
--- OUTSIDE RECORDS SUMMARY | 2025-01-29 13:57 | XMS_ITS | Referral Summary ---
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
--- OUTSIDE RECORDS SUMMARY | 2025-01-29 13:57 | XMS_ITS | Encounter Summary ---
Author Organization [facility] Address [address] [place] [address] Care Team Providers Care Coating Machine Operator Name Role Phone Unknown, Notinfile Primary Care Provider Unavail able Encounter Details Date Type Department Care Team (Late st Contact Info) Description 01/29/2025 [facility] Initial Eligibility [facility] Warm Hand Off Program [address] [place] [address] Gisele Walton Social History Tobacco Use Types Packs/Day Years Used Date Smoking Tobacco: Every Day Cigarettes Smokeless Tobacco: Never Sex and Gender Information Value Date Recorded Sex Assigned at Not on file 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 Pt reports last fentanyl use was 5 days ago and did not meet criteria. Referred to [facility]. documented in this encounter Plan of Treatment Not on file documented as of this encounter Visit Diagnoses Not on filedocumented in this encounter Care Teams Coating Machine Operator Relationship Specialty Start Date End Date Unknown, Notinfile PCP - General 07/18/24 documented as of this encounter
--- OUTSIDE RECORDS SUMMARY | 2025-01-29 13:57 | XMS_ITS | Encounter Summary ---
Author Organization [facility] Address [facility]ly [facility] [place] [address] Care Team Providers Care Physical Chemistry Professor Name Role Phone Jose Carlos Mcdonough MD Primary Care Provider [phone] Marissa Jung Primary Care Provider [phone] Tres Abdi MD Primary Care Provider [phone] Encounter Details Date Type Department Care Team (Late st Contact Info) Description 01/07/2019 [facility] [address] [place] [address] , Generic Conversion, Social History Tobacco Use Types Packs/Day Years Used Date Smoking Tobacco: Never Assessed Sex and Gender Information Value Date Recorded Sex Assigned at Not on file 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 Gender Identity Not on file Sexual Orientation Not on file documented as of this encounter Plan of Treatment Not on file documented as of this encounter Visit Diagnoses Not on filedocumented in this encounter Additional Health Concerns Infection Onset Date Last Indicated Resolved Time MRSA 08/17/2018 08/17/2018 documented as of this encounter Care Teams Physical Chemistry Professor Relationship Specialty Start Date End Date Jose Carlos Mcdonough MD PCP - General FAMILY PRACTICE 06/26/19 07/19/19 Marissa Jung FNP-BC [address] [place] [address] PCP - General NURSE PRACTITIONER 07/20/19 03/12/20 Tres Abdi MD [address] [place] [phone] PCP - General FAMILY PRACTICE 03/13/20 documented as of this encounter
== END 2025-01-29 13:37 | disposition home or self-care (01) ==
LOC: CHSLAB 13:38
PROVIDERS: PCP Family Medicine; Visit Provider Family Medicine
DX: E03.9 Hypothyroidism, unspecified (principal)
CPT/HCPCS: 36415; 84443

== ENCOUNTER 2025-06-12 10:29 | Outpatient (CLI) | payer OTHER, SELFPAY ==
--- NOTE | ~2025-06-12 | XR_ITS ---
EXAMINATION: XR foot LT min 3V, 06/12/2025 10:35 BRAND MARKETING INTERN HISTORY: LEFT FOOT PAIN COMPARISON: No comparisons available. Findings: Postsurgical changes noted in the navicular bone, no acute fracture identified No significant degenerative changes. Soft tissues unremarkable. Impression: No acute fracture or malalignment. Reviewed, dictated and finalized at location P. D MARKETING INTERN Impression: No acute fracture or malalignment.
[2025-06-12 10:47] LABS: Hematocrit 45.1 % (40.0-54.0); Hemoglobin 15.0 g/dL (14.0-18.0); Immature Granulocyte Percent A 0.1 % (0.0-0.0); Lymphocytes Absolute Auto 1.93 K/mm3 (1.10-4.50); Mean Corpuscular HGB Conc 33.3 g/dL (32-36); Mean Corpuscular Hemoglobin 29.5 pg (27.0-31.0); Mean Corpuscular Volume 88.8 fL (78.0-102.0); Nucleated Red Blood Cells Absolute Auto 0.00 K/mm3 (0.00-0.00); Nucleated Red Blood Cells Perc 0.0 % (0-0.0); Platelet Count Result 365 K/mm3 (150-420); Red Blood Count 5.08 M/mm3 (4.70-6.10); White Blood Count 8.1 K/mm3 (4.8-10.8)
--- OUTSIDE RECORDS SUMMARY | 2025-06-12 11:07 | XMS_ITS | Clinical Summary ---
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
[2025-06-12 11:20] LABS: Alanine Aminotransferase 25 U/L (6-50); Albumin Level 4.9 g/dL (3.5-5.1); Alkaline Phosphatase 108 U/L (38-126); Anion Gap 12 mmol/L (4-12); Aspartate Amino Transferase 44 U/L (17-59); Bilirubin,Total 2.0 mg/dL (0.2-1.3); Blood Urea Nitrogen 15 mg/dL (9-20); Calcium 9.2 mg/dL (8.4-10.2); Carbon Dioxide 24 mmol/L (22-30); Chloride 104 mmol/L (98-107); Estimated Glomerular Filt Rate > 60; Glucose 145 mg/dL (65-110); Osmolality Calculated 293 mOsm/kg (285-295); Potassium 4.9 mmol/L (3.4-5.0); Sodium 140 mmol/L (137-145); Total Protein 8.4 g/dL (6.3-8.2)
[2025-06-12 11:51] LABS: Thyroid Stimulating Hormone > 96.000 uIU/mL (0.465-4.680)
[2025-06-12 15:45] LABS: Free T4 Free Thyroxine 0.47 ng/dL (0.78-2.19)
[2025-06-14 09:08] LABS: Hemoglobin A1C 5.4 % (<5.7)
== END 2025-06-12 10:30 | disposition home or self-care (01) ==
PROVIDERS: PCP Family Medicine; Visit Provider Family Medicine
DX: E03.9 Hypothyroidism, unspecified (principal); R79.89 Other specified abnormal findings of blood chemistry; R17 Unspecified jaundice
CPT/HCPCS: 36415; 73630; 80053; 82248; 83036; 84439; 84443; 85025

== ENCOUNTER 2025-06-13 10:30 | Outpatient (CLI) | payer OTHER, SELFPAY ==
--- NOTE | ~2025-06-13 | XR_ITS ---
EXAMINATION: XR ankle LT min 3V, 06/13/2025 10:40 WELL SURVEYING ENGINEER HISTORY: LEFT ANKLE PAIN COMPARISON: No comparisons available. Findings: No acute fracture or malalignment. No significant degenerative changes. Soft tissues unremarkable. Impression: No acute fracture or malalignment. Reviewed, dictated and finalized at location P. SURVEYING ENGINEER Impression: No acute fracture or malalignment.
--- OUTSIDE RECORDS SUMMARY | 2025-06-13 11:52 | XMS_ITS | Clinical Summary ---
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
== END 2025-06-13 10:31 | disposition home or self-care (01) ==
PROVIDERS: PCP Family Medicine; Visit Provider Family Medicine
DX: M25.572 Pain in left ankle and joints of left foot (principal)
CPT/HCPCS: 73610